=== PATIENT | male | born 1945 | race Caucasian/White ===

== ENCOUNTER 2017-07-01 07:32 | Inpatient (IN) ==
[2017-07-01] MEDS ORDERED: Mag Hydrox/Al Hydrox/Simeth 30 ML UDC PO ONE (08:24)
[2017-07-01] MEDS: Sucralfate 1 GM TABLET PO SCH ×2 (08:50→15:27)
--- NOTE | 2017-07-01 08:59 | Emergency Department Note ---
Disposition Clinical Impression: Pancreatitis Qualifiers: Chronicity: acute Pancreatitis type: unspecified pancreatitis type Acute pancreatitis complication: unspecified Qualified Code(s): K85.90 - Acute pancreatitis without necrosis or infection, unspecified Disposition: Admitted As Inpatient Condition: Good Referrals: NONE,PCP [Primary Care Provider] - Forms: ED Satisfaction Letter, Work/School Release Time of Disposition: 13:18 Abdominal Pain HPI - General Chief Complaint: ED Abdominal Pain Stated Complaint: abd pain Time Seen by Provider: 07/01/17 07:50 Source: patient Limitations: no limitations - History of Present Illness HPI Narrative: Mr. Galdamez is a 72-year-old gentleman presenting for abdominal pain located in mid-epigastric area, which began last night and was accompanied by 3 episodes of non-bloody emesis. He denies similar episodes in the past; no nausea, fever, chills, shortness of breath, constipation, diarrhea, or bloody bowel movements. No h/o abdominal surgeries. Pt states he drinks some alcohol occasionally. Pt Subjective Complaint: abdominal pain Onset (ago): day(s) Consistency: constant Location: epigastric Pain Severity: moderate Pain Scale: 9 Improves with: nothing Worsens with: nothing Associated symptoms: Reports: vomiting. Denies: nausea, diarrhea, fever, constipation, hematemesis, hematochezia, melena Treatments prior to arrival: none - Related Data Allergies Allergy/AdvReac Type Severity Reaction Status Date / Time No Known Allergies Allergy Verified 07/01/17 07:41 Review of Systems: As Per HPI Constitutional: Denies: fever Cardiovascular: Denies: chest pain, edema Respiratory: Denies: dyspnea Gastrointestinal: Reports: abdominal pain, vomiting. Denies: nausea, diarrhea, constipation, hematemesis, melena, hematochezia Abdominal Pain PMH - Past Medical History Medical history: Reports: no medical history. Denies: GERD Denies: diverticulosis, pancreatitis Male Surgical History: Reports: other - Social History Smoking status: Current every day smoker Alcohol use: Reports: occasionally Physical Exam - General Limitations: no limitations General appearance: alert, in no apparent distress - Head Head exam: atraumatic, normocephalic - Eye Eye exam: Present: normal appearance, EOMI. Absent: scleral icterus - Neck Neck exam: Present: normal inspection, full ROM - Chest Chest inspection: Present: normal inspection, symmetric chest wall rise. Absent : tenderness - Respiratory Respiratory exam: Present: normal lung sounds bilaterally. Absent: wheezes - Cardiovascular Cardiovascular exam: Present: regular rate, normal rhythm, normal heart sounds, +S1, +S2. Absent: systolic murmur, diastolic murmur - Abdominal Exam Abdominal exam: Present: soft, normal bowel sounds. Absent: rebound, rigidity, ascites Abdominal tenderness: Present: epigastrium. Absent: RUQ - Extremities Exam Extremities exam: Present: normal inspection, full ROM. Absent: pedal edema - Neurological Exam Neurological exam: Present: alert, oriented X3, CN II-XII intact - Psychiatric Psychiatric exam: Present: normal affect, normal mood - Skin Skin exam: Present: warm, dry, intact Course Vital Signs Temperature 97.4 F L 07/01/17 07:32 Pulse Rate 65 07/01/17 07:32 Respiratory Rate 18 07/01/17 07:32 Blood Pressure 136/78 07/01/17 07:32 O2 Sat by Pulse Oximetry 97 07/01/17 07:32 Temperature 97.4 F L 07/01/17 07:38 Pulse Rate 79 07/01/17 11:44 Respiratory Rate 18 07/01/17 11:44 Blood Pressure 136/81 07/01/17 11:44 O2 Sat by Pulse Oximetry 99 07/01/17 11:44 Oxygen Delivery Oxygen Delivery Room Air Abdominal Pain - MDM Narrative Medical decision making narrative: Attestation by Dr. Harper - I saw this patient in conjunction with Dr. Smith and Dr. Myers as senior resident of case. Please see their notes for any additional details. In summary, patient is a 72-year-old male that presented with epigastric abdominal discomfort. Labs show elevated lipase, official ultrasound was negative for any signs of cholecystitis, any common bile duct dilitation. Patient was given fentanyl for pain control, normal saline bolus, maintenance IV fluids. Patient was accepted for admission by hospitalist Dr. Cook - Medical Records Medical records reviewed: Yes I reviewed the patient's medical records. - Lab Data Lab results reviewed: Yes I reviewed the patient's lab results. Result diagrams: 07/01/17 08:44 - Radiology Data Radiology results reviewed: Yes I reviewed the patient's radiology results. Chest X-Ray 07/01/17 08:23 IMPRESSION: 1. No active pulmonary disease. D/ / Arias Lopez MD / Arias Lopez MD Interpreting Provider: Arias Lopez MD Gallbladder Ultrasound 07/01/17 10:01 IMPRESSION: Unremarkable right upper quadrant ultrasound. D/ / Rex Escalante MD / Rex Escalante MD Interpreting Provider: Rex Escalante MD S.B.A.R. - S.B.A.R. Situation: Demographics, MOA Background: Presenting Complaint, Relevant PMH, Meds, & Allergies Assessment: Vital Signs, Course and respsone to treatment, Exam Concerns, Patient/Family Expectation, Pertinant Lab Results, Outstanding Labs Recommendation: Barrier(s) to disposition, Recommendation based on pending studies, treatments, or consults S.B.A.R. Report Given to: Dr. cook
[2017-07-01 09:14] LABS: Troponin I < 0.03 ng/mL (< 0.04)
[2017-07-01 09:15] LABS: Alanine Aminotransferase 19 Units/L (7-52); Albumin 4.1 g/dL (3.5-5.7); Albumin/Globulin Ratio 1.3 (1.1-2.2); Alkaline Phosphatase 65 Units/L (34-104); Aspartate Amino Transferase 19 Units/L (13-39); Bilirubin,Direct 0.2 mg/dL (0.0-0.2); Bilirubin,Indirect 0.5 mg/dL (0.0-1.2); Bilirubin,Total 0.7 mg/dL (0.3-1.0); Globulin 3.1 g/dL (2.4-3.5); Lipase 468 Units/L (11-82); Total Protein 7.2 g/dL (6.4-8.9)
[2017-07-01] MEDS ORDERED: Ondansetron ODT 4 MG TAB.RAPDIS SL ONE (11:37)
[2017-07-01] MEDS ORDERED: *HR* FentaNYL (PF) 100 MCG/2 ML VIAL IVP ONE (12:13)
[2017-07-01] MEDS ORDERED: 0.9 % Sodium Chloride 1,000 ML IVC ONE (12:13)
--- NOTE | 2017-07-01 12:56 | Internal Med History&Physical ---
Date of Encounter: 07/01/17 Time of Encounter: 12:00 Internal Medicine - H&P: HPI Chief complaint: Epigastric pain Admitted From: Home History of present illness: Patient is a 72-year-old male with past medical history significant for being a [id number] smoker who presents to the ER on 07/01/17 due to epigastric pain. Patient reports a one-month history of epigastric discomfort which she describes as bloating/dull/sharp which was intermittent but now has been constant in the last 24 hours. Patient reports that food exacerbates his symptoms and nothing gives a patient any relief. Patient was concerned and decided to come to the ER for evaluation. Patients friend who is at the bedside also mentions that oh by the way patient had hemoptysis several months ago but no further episodes. In the ER, patient was found to have a lipase of 468; right upper quadrant was negative for cholelithiasis. Past Med Surg Social Fam HX - Past Medical History Medical history: no medical history - Past Surgical History Surgical History: non-contributory - Social History Smoking Status: Current every day smoker Smokeless Tobacco Status: No Alcohol use: occasionally - Additional Family History Additional family history: Noncontributory Internal Medicine - H&P: Meds No Known Home Drugs 07/01/17 [History] 3 Allergy/AdvReac Type Severity Reaction Status Date / Time No Known Allergies Allergy Verified 07/01/17 07:41 All Systems PM: A 10-system review of systems was performed and is negative for pertinent findings except as documented above in the HPI. - Constitutional Vitals: Temp Pulse Resp BP Pulse Ox 97.4 F L 79 18 136/81 99 07/01/17 07:38 07/01/17 11:44 07/01/17 11:44 07/01/17 11:44 07/01/17 11:44 General appearance: Present: A&O X 3, no acute distress - Eye Eye exam: Present: normal appearance - ENT ENT exam: Present: mucous membranes moist - Respiratory Respiratory exam: Present: CTAB. Absent: accessory muscle use, rales, rhonchi, wheezes - Cardiovascular Cardiovascular exam: Present: RRR, +S1, +S2. Absent: diastolic murmur, gallop, rubs, systolic murmur - GI/Abdominal GI/Abdominal exam: Present: tenderness (Mild epigastric tenderness) - Extremities Exam Extremities exam: Absent: pedal edema - Neurological Exam Neurological exam: Present: oriented X3 - Psychiatric Psychiatric exam: Present: normal mood - Skin Skin exam: Present: normal color Internal Med - H&P Results - Labs CBC & Chem 7: 07/01/17 08:44 Labs: Short CBC 07/01/17 Range/Units 08:44 Hgb 13.6 (12.9-16.9) g/dL Cardiac Enzymes 07/01/17 Range/Units 08:44 Troponin I < 0.03 (< 0.04) ng/mL Liver Function 07/01/17 Range/Units 08:44 Total Bilirubin 0.7 (0.3-1.0) mg/dL Direct Bilirubin 0.2 (0.0-0.2) mg/dL AST 19 (13-39) Units/L ALT 19 (7-52) Units/L Alkaline Phosphatase 65 (34-104) Units/L Albumin 4.1 (3.5-5.7) g/dL - Impressions ITS Impressions Chest X-Ray 07/01/17 08:23 IMPRESSION: 1. No active pulmonary disease. D/ / Arias Lopez MD / Arias Lopez MD Interpreting Provider: Arias Lopez MD Gallbladder Ultrasound 07/01/17 10:01 IMPRESSION: Unremarkable right upper quadrant ultrasound. D/ / Rex Escalante MD / Rxe Escalante MD Interpreting Provider: Rex Escalante MD - Assessment and plan (1) Pancreatitis Current Visit: Yes Status: Acute Assessment and plan: Patient was found to have a lipase of 468; right upper quadrant was negative for cholelithiasis. Will keep patient nothing by mouth with IV fluids and pain control Reevaluate in the a.m. Qualifiers: Chronicity: acute Pancreatitis type: unspecified pancreatitis type Acute pancreatitis complication: unspecified Qualified Code(s): K85.90 - Acute pancreatitis without necrosis or infection, unspecified (2) Smoker Current Visit: Yes Status: Acute Assessment and plan: Patient is a [id number] smoker Discussed with patient about smoking cessation Patient also reports a remote history of hemoptysis Will order a CT of the chest for evaluation (3) DVT prophylaxis Current Visit: Yes Status: Acute Assessment and plan: Subcutaneous heparin - Time Spent With Patient Total time spent is greater than 50% in coordination of care (as documented) at patient's floor/unit and/or counseling patient:
--- NOTE | 2017-07-01 13:06 | Electrocardiograph Report ---
[facility] Test Date: 2017-07-01 Pat Name: Ilia Galdamez Department: 102 Room: Gender: M [employer]: [facility] : [id number] Requested By: Derick Smith Order Number: [id number] Reading MD: Reza Umanzor MD Measurements Intervals [place] Rate: 59 P: 59 IA: 205 QRS: 71 QRSD: 90 T: 50 QT: 401 QTc: 401 Interpretive Statements SINUS BRADYCARDIA WITH SINUS ARRHYTHMIA LOW QRS VOLTAGE IN EXTREMITY LEADS [QRS DEFLECTION < 0.5 mV IN LIMB LEADS] Electronically Signed On 07-01-2017 13:05:05 EDT by Reza Umanzor MD
--- NOTE | 2017-07-01 14:49 | Emergency Department Note ---
Disposition Clinical Impression: Pancreatitis Qualifiers: Chronicity: acute Pancreatitis type: unspecified pancreatitis type Acute pancreatitis complication: unspecified Qualified Code(s): K85.90 - Acute pancreatitis without necrosis or infection, unspecified Disposition: Admitted As Inpatient Condition: Good General Adult HPI - General Chief complaint: ED Abdominal Pain Stated complaint: abd pain Time Seen by Provider: 07/01/17 07:50 Source: patient Limitations: no limitations - History of Present Illness Pain Scale: 0 - Related Data Home Medications Medication Instructions Recorded Confirmed No Known Home Drugs 07/01/17 07/01/17 Allergies Allergy/AdvReac Type Severity Reaction Status Date / Time No Known Allergies Allergy Verified 07/01/17 07:41 Constitutional: Denies: fever Cardiovascular: Denies: chest pain, edema Respiratory: Denies: dyspnea Gastrointestinal: Reports: abdominal pain, vomiting. Denies: nausea, diarrhea, constipation, hematemesis, melena, hematochezia Past Medical History - Past Medical History Medical history: Reports: no medical history. Denies: GERD Surgical history: Reports: non-contributory - Social History Smoking Status: Current every day smoker Smokeless Tobacco Status: No Alcohol use: Reports: occasionally Physical Exam - General Limitations: no limitations General appearance: alert, in no apparent distress Course Vital Signs Temperature 97.4 F L 07/01/17 07:32 Pulse Rate 65 07/01/17 07:32 Respiratory Rate 18 07/01/17 07:32 Blood Pressure 136/78 07/01/17 07:32 O2 Sat by Pulse Oximetry 97 07/01/17 07:32 Temperature 98.1 F 07/01/17 14:35 Pulse Rate 66 07/01/17 14:35 Respiratory Rate 18 07/01/17 14:35 Blood Pressure 146/65 07/01/17 14:35 O2 Sat by Pulse Oximetry 97 07/01/17 14:35 Oxygen Delivery Oxygen Delivery Room Air Medical Decision Making - Lab Data Result diagrams: 07/01/17 08:44 Lab Results 07/01/17 07/01/17 Range/Units 08:44 08:44 Hgb 13.6 (12.9-16.9) g/dL Total Bilirubin 0.7 (0.3-1.0) mg/dL Direct Bilirubin 0.2 (0.0-0.2) mg/dL Indirect Bilirubin 0.5 (0.0-1.2) mg/dL AST 19 (13-39) Units/L ALT 19 (7-52) Units/L Alkaline Phosphatase 65 (34-104) Units/L Troponin I < 0.03 (< 0.04) ng/mL Serum Total Protein 7.2 (6.4-8.9) g/dL Albumin 4.1 (3.5-5.7) g/dL Globulin 3.1 (2.4-3.5) g/dL Albumin/Globulin Ratio 1.3 (1.1-2.2) Lipase 468 H (11-82) Units/L Attestation Statement - Attestation Attestation: I examined this patient and my medical decision-making was reviewed with the Resident Physician. I agree with the documented findings, disposition and treatment plan as described except to the extent set forth below. Procedure, emergency bedside US of the RUQ: Procedure performed by Dr. Harper with my assistance. Images obtained and interpreted by Dr. Harper and myself, images sent to PACS. Multiple images of the GB were obtained in the longitudinal and transverse planes, showing GB sludge without obvious stones. No pericholecystic fluid, neg Sonographic Ewing. CBD was not well visualized. Radiology US ordered to better assess CBD diameter, given elevated lipase. Hemodynamically normal, normal mentation. Stable for admit to the floor.
[2017-07-01] MEDS ORDERED: Ketorolac 30 MG/ML VIAL IVP ONE (15:10)
[2017-07-01] MEDS: 0.9 % Sodium Chloride 1,000 ML IVC SCH (15:20)
[2017-07-01] MEDS ORDERED: Naloxone 0.4 MG/ML INJ IVP PRN (16:51)
[2017-07-01] MEDS ORDERED: Isovue-370 500 ML INFUS..BTL IV ONE (16:56)
[2017-07-01 17:34] LABS: BUN/Creatinine Ratio 17 (6-26); Blood Urea Nitrogen 20 mg/dL (8-23); eGFR For African Americans > 60 (> 60); eGFR For Non-African Americans > 60 (> 60)
[2017-07-01] MEDS ORDERED: Ondansetron 4 MG/2 ML VIAL IVP PRN (19:17)
[2017-07-01] MEDS: *HR* Heparin 5,000 UNIT/ML VIAL SQ SCH (21:13)
[2017-07-02] MEDS: 0.9 % Sodium Chloride 1,000 ML IVC SCH ×2 (00:37→09:02)
[2017-07-02] MEDS: *HR* Heparin 5,000 UNIT/ML VIAL SQ SCH ×3 (05:49→22:04)
[2017-07-02 06:13] LABS: Basophils % 0.2 %; Eosinophils % 0.2 %; Hematocrit 31.9 % (37.5-50.1); Immature Granulocytes % 1.1 % (0-4); Immature Platelets 4.9 % (1.1-6.1); Lymphocytes # 1.3 K/mcL (0.6-4.6); Lymphocytes % 10.7 %; Mean Corpuscular HGB Conc 34.5 g/dL (31.6-35.5); Mean Corpuscular Hemoglobin 31.3 pg (28.0-33.3); Mean Corpuscular Volume 90.6 fL (83.0-100.0); Mean Platelet Volume 10.3 fL (9.4-12.4); Monocytes # 1.2 K/mcL (0.0-1.3); Monocytes % 9.9 %; Neutrophils # 9.4 K/mcL (1.6-8.9); Platelet Count 184 K/mcL (140-400); Red Blood Count 3.52 M/mcL (4.19-5.50); Red Cell Distribution Width 12.5 % (11.5-14.5); Segmented Neutrophils % 77.9 %
[2017-07-02 06:16] LABS: BUN/Creatinine Ratio 20 (6-26); Blood Urea Nitrogen 25 mg/dL (8-23); Calcium 8.3 mg/dL (8.6-10.3); Carbon Dioxide 19 mEq/L (23-29); Chloride 105 mEq/L (98-107); Chol/HDL Ratio 4.2 (0-4.9); Cholesterol 138 mg/dL (< 200); Glucose 75 mg/dL (70-105); HDL Cholesterol 33 mg/dL (40-59); LDL Cholesterol,Calculated 85 mg/dL (0-99); Osmolality,Calculated 279 (280-300); Potassium 3.9 mEq/L (3.5-5.1); Sodium 133 mEq/L (136-145); Triglycerides 98 mg/dL (< 150); eGFR For African Americans > 60 (> 60); eGFR For Non-African Americans 56 (> 60)
[2017-07-02 06:56] LABS: Bilirubin,Urine Negative (Negative); Blood,Urine Negative (Negative); Clarity,Urine Clear (Clear); Color,Urine Yellow (Yellow); Glucose,Urine (UA) Normal (Normal); Ketones,Urine 15 mg/dL (Negative); Leukocyte Esterase,Urine Negative (Negative); Nitrite,Urine Negative (Negative); Protein,Urine Trace mg/dL (Neg-Trace); Specific Gravity,Urine > 1.030 (1.010-1.025); Urobilinogen,Urine Normal (Normal)
[2017-07-02 06:59] LABS: Bacteria,Urine None Seen per hpf (None-Few); Hyaline Casts,Urine None Seen per lpf (None-Few); Squamous Epithelial Cell,Urine Few per lpf (None-Few); WBC,Urine 0-3 per hpf (0-3)
[2017-07-02] MEDS: Sucralfate 1 GM TABLET PO SCH ×2 (09:08→17:12)
[2017-07-02] MEDS ORDERED: *HR* Dextrose 50 % in Water (Syg) 50 ML SYRINGE IVP PRN (11:50)
[2017-07-02] MEDS ORDERED: Dextrose Gel 15 GM/37.5 ML TUBE PO PRN ×2 (11:50)
[2017-07-02] MEDS ORDERED: D5% in Water 1,000 ML IVC PRN (11:50)
[2017-07-02] MEDS: D5% in 0.45% NACL 1,000 ML IVC SCH (12:38)
--- NOTE | 2017-07-02 13:10 | Internal Med Progress Note ---
Date of Encounter: 07/02/17 Time of Encounter: 13:00 - Assessment and plan (1) Pancreatitis Current Visit: Yes Status: Acute Assessment and plan: Patient was found to have a lipase of 468; right upper quadrant was negative for cholelithiasis. NPO. Advance diet as tolerated. Qualifiers: Chronicity: acute Pancreatitis type: unspecified pancreatitis type Acute pancreatitis complication: unspecified Qualified Code(s): K85.90 - Acute pancreatitis without necrosis or infection, unspecified (2) Smoker Current Visit: Yes Status: Acute Assessment and plan: Counseled to quit. F/U CT chest in light of reported hemoptysis (3) DVT prophylaxis Current Visit: Yes Status: Acute Assessment and plan: Subcutaneous heparin - Time Spent With Patient Total time spent is greater than 50% in coordination of care (as documented) at patient's floor/unit and/or counseling patient: - Subjective Interval history: No acute events overnight - Constitutional Vitals: Temp Pulse Resp BP Pulse Ox 98.4 F 97 14 129/61 96 07/02/17 11:30 07/02/17 11:30 07/02/17 11:30 07/02/17 11:30 07/02/17 11:30 General appearance: Present: A&O X 3, no acute distress - Head Head exam: Present: atraumatic, normocephalic - Eye Eye exam: Present: PERRL, conjuntiva pink, sclera anicteric Pupils: Present: PERRL - Neck Neck exam general surgery: Present: supple, trachea midline. Absent: lymphadenopathy - Respiratory Respiratory exam: Present: CTAB. Absent: accessory muscle use, rales, rhonchi, wheezes - Cardiovascular Cardiovascular exam: Present: RRR, +S1, +S2. Absent: diastolic murmur, gallop, rubs, systolic murmur - GI/Abdominal GI/Abdominal exam: Present: normal bowel sounds, soft, no peritoneal signs. Absent: distended, tenderness - Extremities Exam Extremities exam: Present: warm, radial pulses palpable and symmetrical. Absent : calf tenderness, cyanotic, pedal edema - Neurological Exam Neurological exam: Present: CN II-XII intact, oriented X3, no focal deficits. Absent: pronater drift, facial droop, speech deficit - Skin Skin exam: Present: dry, intact Internal Medicine: Result - Labs CBC & Chem 7: 07/02/17 04:41 07/02/17 04:41 Labs: Short CBC 07/02/17 Range/Units 04:41 WBC 12.0 H (4.3-11.1) K/mcL Hgb 11.0 L D (12.9-16.9) g/dL Hct 31.9 L (37.5-50.1) % Plt Count 184 (140-400) K/mcL Neutrophils # 9.4 H (1.6-8.9) K/mcL BMP 07/02/17 04:41 Sodium 133 L Potassium 3.9 Chloride 105 Carbon Dioxide 19 L BUN 25 H Creatinine 1.27 Glucose 75 Calcium 8.3 L Urine 07/02/17 Range/Units 06:25 Urine Color Yellow (Yellow) Urine Clarity Clear (Clear) Urine pH 6.0 (5.0-8.0) pH Units Ur Specific [place] > 1.030 H (1.010-1.025) Urine Protein Trace (Neg-Trace) mg/dL Urine Glucose (UA) Normal (Normal) mg/dL - Impressions Impressions Chest CT 07/01/17 19:30 IMPRESSION: Emphysema. Lungs otherwise are unremarkable. D/ / Amy Cagle MD / Amy Cagle MD Interpreting Provider: Amy Cagle MD Consult Discharge Plan - Plan Referrals: NONE,PCP [Primary Care Provider] -
[2017-07-02] MEDS: Ketorolac 30 MG/ML VIAL IVP PRN (14:27)
[2017-07-02] MEDS: Melatonin 3 MG TABLET PO PRN (22:04)
[2017-07-03] MEDS: D5% in 0.45% NACL 1,000 ML IVC SCH ×2 (02:07→21:15)
[2017-07-03] MEDS: Ketorolac 30 MG/ML VIAL IVP PRN (02:12)
[2017-07-03 05:55] LABS: Basophils % 0.1 %; Eosinophils # 0.1 K/mcL (0.0-0.6); Eosinophils % 0.9 %; Hematocrit 29.6 % (37.5-50.1); Hemoglobin 10.3 g/dL (12.9-16.9); Immature Granulocytes % 0.2 % (0-4); Lymphocytes # 1.2 K/mcL (0.6-4.6); Lymphocytes % 14.4 %; Mean Corpuscular HGB Conc 34.8 g/dL (31.6-35.5); Mean Corpuscular Hemoglobin 31.8 pg (28.0-33.3); Mean Corpuscular Volume 91.4 fL (83.0-100.0); Mean Platelet Volume 10.2 fL (9.4-12.4); Monocytes % 11.7 %; Neutrophils # 5.9 K/mcL (1.6-8.9); Platelet Count 141 K/mcL (140-400); Red Blood Count 3.24 M/mcL (4.19-5.50); Red Cell Distribution Width 12.2 % (11.5-14.5); Segmented Neutrophils % 72.7 %
[2017-07-03 06:14] LABS: BUN/Creatinine Ratio 19 (6-26); Blood Urea Nitrogen 23 mg/dL (8-23); Calcium 8.1 mg/dL (8.6-10.3); Carbon Dioxide 23 mEq/L (23-29); Chloride 105 mEq/L (98-107); Glucose 105 mg/dL (70-105); Magnesium 1.9 mg/dL (1.6-2.6); Osmolality,Calculated 278 (280-300); Phosphorous 1.7 mg/dL (2.7-4.5); Potassium 3.9 mEq/L (3.5-5.1); Sodium 132 mEq/L (136-145); eGFR For African Americans > 60 (> 60); eGFR For Non-African Americans 59 (> 60)
[2017-07-03] MEDS: Sucralfate 1 GM TABLET PO SCH ×2 (08:59→15:16)
[2017-07-03] MEDS: *HR* Heparin 5,000 UNIT/ML VIAL SQ SCH ×3 (08:59→21:16)
--- NOTE | 2017-07-03 11:48 | Internal Med Progress Note ---
Date of Encounter: 07/03/17 Time of Encounter: 11:30 - Assessment and plan (1) Pancreatitis Current Visit: Yes Status: Acute Assessment and plan: Patient was found to have a lipase of 468; right upper quadrant was negative for cholelithiasis. Tolerated clear liquids yesterday. Will advance diet as tolerated today and monitor Qualifiers: Chronicity: acute Pancreatitis type: unspecified pancreatitis type Acute pancreatitis complication: unspecified Qualified Code(s): K85.90 - Acute pancreatitis without necrosis or infection, unspecified (2) Smoker Current Visit: Yes Status: Acute Assessment and plan: Counseled to quit. CT chest came back with WNL (3) DVT prophylaxis Current Visit: Yes Status: Acute Assessment and plan: Subcutaneous heparin - Time Spent With Patient Total time spent is greater than 50% in coordination of care (as documented) at patient's floor/unit and/or counseling patient: - Subjective Interval history: No acute events overnight - Constitutional Vitals: Temp Pulse Resp BP Pulse Ox 98.3 F 90 16 111/59 93 07/03/17 11:11 07/03/17 11:11 07/03/17 11:11 07/03/17 11:11 07/03/17 11:11 General appearance: Present: A&O X 3, no acute distress - Head Head exam: Present: atraumatic, normocephalic - Eye Eye exam: Present: PERRL, conjuntiva pink, sclera anicteric Pupils: Present: PERRL - Neck Neck exam general surgery: Present: supple, trachea midline. Absent: lymphadenopathy - Respiratory Respiratory exam: Present: CTAB. Absent: accessory muscle use, rales, rhonchi, wheezes - Cardiovascular Cardiovascular exam: Present: RRR, +S1, +S2. Absent: diastolic murmur, gallop, rubs, systolic murmur - GI/Abdominal GI/Abdominal exam: Present: normal bowel sounds, soft, no peritoneal signs. Absent: distended, tenderness - Extremities Exam Extremities exam: Present: warm, radial pulses palpable and symmetrical. Absent : calf tenderness, cyanotic, pedal edema - Neurological Exam Neurological exam: Present: CN II-XII intact, oriented X3, no focal deficits. Absent: pronater drift, facial droop, speech deficit - Skin Skin exam: Present: dry, intact Internal Medicine: Result - Labs CBC & Chem 7: 07/03/17 05:33 07/03/17 05:33 Labs: Short CBC 07/03/17 Range/Units 05:33 WBC 8.2 (4.3-11.1) K/mcL Hgb 10.3 L (12.9-16.9) g/dL Hct 29.6 L (37.5-50.1) % Plt Count 141 (140-400) K/mcL Neutrophils # 5.9 (1.6-8.9) K/mcL BMP 07/03/17 05:33 Sodium 132 L Potassium 3.9 Chloride 105 Carbon Dioxide 23 BUN 23 Creatinine 1.21 Glucose 105 Calcium 8.1 L Consult Discharge Plan - Plan Referrals: NONE,PCP [Primary Care Provider] -
[2017-07-03] MEDS: Acetaminophen 325 MG TABLET PO PRN ×3 (15:19→22:13)
[2017-07-03] MEDS: Melatonin 3 MG TABLET PO PRN (21:21)
[2017-07-04] MEDS: Acetaminophen 325 MG TABLET PO PRN (05:52)
[2017-07-04] MEDS: *HR* Heparin 5,000 UNIT/ML VIAL SQ SCH (05:53)
[2017-07-04 06:49] LABS: BUN/Creatinine Ratio 16 (6-26); Blood Urea Nitrogen 16 mg/dL (8-23); Carbon Dioxide 22 mEq/L (23-29); Chloride 101 mEq/L (98-107); Glucose 109 mg/dL (70-105); Osmolality,Calculated 266 (280-300); Potassium 3.6 mEq/L (3.5-5.1); Sodium 127 mEq/L (136-145); eGFR For African Americans > 60 (> 60); eGFR For Non-African Americans > 60 (> 60)
[2017-07-04 07:16] LABS: Basophils % 0.1 %; Eosinophils # 0.1 K/mcL (0.0-0.6); Eosinophils % 1.2 %; Hematocrit 30.8 % (37.5-50.1); Hemoglobin 10.6 g/dL (12.9-16.9); Immature Granulocytes % 0.4 % (0-4); Lymphocytes # 1.2 K/mcL (0.6-4.6); Lymphocytes % 16.1 %; Mean Corpuscular HGB Conc 34.4 g/dL (31.6-35.5); Mean Corpuscular Hemoglobin 31.3 pg (28.0-33.3); Mean Corpuscular Volume 90.9 fL (83.0-100.0); Monocytes # 0.8 K/mcL (0.0-1.3); Monocytes % 10.5 %; Neutrophils # 5.5 K/mcL (1.6-8.9); Platelet Count 147 K/mcL (140-400); Red Blood Count 3.39 M/mcL (4.19-5.50); Red Cell Distribution Width 12.1 % (11.5-14.5); Segmented Neutrophils % 71.7 %
[2017-07-04] MEDS: Sucralfate 1 GM TABLET PO SCH (07:24)
[2017-07-04] MEDS: D5% in 0.45% NACL 1,000 ML IVC SCH (11:20)
[2017-07-04 11:27] VITALS: BP 126/69
--- NOTE | 2017-07-04 11:56 | Discharge Summary ---
Date of Encounter: 07/04/17 Time of Encounter: 11:50 - Discharge Diagnosis (1) Pancreatitis Priority: Primary Status: Acute Assessment and Plan: Patient was found to have a lipase of 468; right upper quadrant was negative for cholelithiasis. Tolerated clear liquids yesterday. Will advance diet as tolerated today and monitor. Wih toleration of diet he was discharged home in a stable condition Qualifiers: Chronicity: acute Pancreatitis type: unspecified pancreatitis type Acute pancreatitis complication: unspecified Qualified Code(s): K85.90 - Acute pancreatitis without necrosis or infection, unspecified (2) Smoker Priority: Secondary Status: Acute Assessment and Plan: Counseled to quit. CT chest came back with WNL (3) DVT prophylaxis Priority: Secondary Status: Acute Assessment and Plan: Subcutaneous heparin Hospital course: Mr. Galdamez is a 72 year old male - Time Spent with Patient Total time spent providing and/or coordinating discharge services: - Discharge Medications Home Medications: No Known Home Drugs 07/01/17 [History] Allergies/Adverse Reactions: 3 Allergy/AdvReac Type Severity Reaction Status Date / Time No Known Allergies Allergy Verified 07/01/17 07:41 Date of admission: 07/02/17 16:07 Primary care physician: PCP NONE - Constitutional Vitals: Temp Pulse Resp BP Pulse Ox 97.6 F 57 16 126/69 97 07/04/17 11:24 07/04/17 11:24 07/04/17 11:24 07/04/17 11:24 07/04/17 11:24 General appearance: Present: A&O X 3, no acute distress - Head Head exam: Present: atraumatic, normocephalic - Eye Eye exam: Present: PERRL, conjuntiva pink, sclera anicteric Pupils: Present: PERRL - Neck Neck exam general surgery: Present: supple, trachea midline. Absent: lymphadenopathy - Respiratory Respiratory exam: Present: CTAB. Absent: accessory muscle use, rales, rhonchi, wheezes - Cardiovascular Cardiovascular exam: Present: RRR, +S1, +S2. Absent: diastolic murmur, gallop, rubs, systolic murmur - GI/Abdominal GI/Abdominal exam: Present: normal bowel sounds, soft, no peritoneal signs. Absent: distended, tenderness - Extremities Exam Extremities exam: Present: warm, radial pulses palpable and symmetrical. Absent : calf tenderness, cyanotic, pedal edema - Neurological Exam Neurological exam: Present: CN II-XII intact, oriented X3, no focal deficits. Absent: pronater drift, facial droop, speech deficit - Skin Skin exam: Present: dry, intact - Patient Status Disposition: Home, Self-Care Condition: Good - Discharge Instructions Instructions: Pancreatitis (DC) Follow Up With: NONE,PCP [Primary Care Provider] -
== END 2017-07-04 13:14 | disposition home or self-care (01) | DRG 282 ==
LOC: EMEROO 07:32 → 3ANU 07:32
PROVIDERS: ADMIT Hospitalist; ATTEND Hospitalist